=== PATIENT | male | born 1965 | race Caucasian/White ===

== ENCOUNTER 2016-09-25 10:26 | Emergency (ER) | payer OTHER ==
--- NOTE | 2016-09-25 13:24 | ED CLINICAL REPORT ---
Clinical Report - Physicians/Mid Levels [facility] [address] [place] [place] [address] 09/25/2016 10:27 Patient: JOSE D WONG Time Seen: 10:51; initial patient contact. Arrived- By private vehicle. Historian- patient. HISTORY OF PRESENT ILLNESS Chief Complaint: FLANK PAIN. This started about 2 days ago and is still present. It was gradual in onset. At its maximum, severity described as mild. When seen in the E.D., severity described as mild. Modifying factors- worsened by movement. Not relieved by anything. No radiation. It is described as located in the left abdomen and the left flank. No nausea, loss of appetite, vomiting or diarrhea. No additional abdominal pain. Similar symptoms previously: None. Recent medical care: Not recently seen/assessed. REVIEW OF SYSTEMS No constipation, difficulty with urination, pain with urination, urinary frequency or fever. No chills. All systems otherwise negative, except as recorded above. PAST HISTORY Neck Pain. Pneumonia. Bronchitis. Sinusitis. Lumbar Strain. Back Injury. Back Pain. ADDITIONAL SURGERIES: Appendectomy. Inguinal Hernia Repair. SOCIAL HISTORY Never smoker. Occasional alcohol use. No drug use. ADDITIONAL NOTES The nursing notes have been reviewed with agreement regarding the chief complaint, PMH and patient medications and allergies. PHYSICAL EXAM Vital Signs: 09/25/2016 10:45 BP: 133/77. HR: 70. RR: 14. O2 saturation: 100%. Temp: 97.9 F. Pain level now: 6/10. Have been reviewed as normal. Appearance: Alert. Oriented X3. No acute distress. Eyes: Eyes normal inspection. ENT: Pharynx normal. CVS: Normal heart rate and rhythm. Heart sounds normal. Respiratory: No respiratory distress. Breath sounds normal. Abdomen: Soft and nontender. Bowel sounds normal. No organomegaly. No mass. Back: Moderate tenderness in the left mid lumbar area. Muscle spasm in the left mid lumbar spine region. Moderately limited ROM in the back- in the lumbar spine: decreased flexion, extension and rotation to the right. No CVA tenderness or vertebral point tenderness. Extremities: Extremities exhibit normal ROM. No lower extremity edema. Neuro: Oriented X 3. No motor deficit. LABS, X-RAYS, AND EKG Laboratory Tests: UA-Culture if indicated: (MAEGAN: 09/25/2016 10:45) ( MsgRcvd 09/25/2016 11:13) Final results Test Result Flag Units (Reference) URINE COLOR YELLOW URINE APPEARANCE CLEAR URINE GLUCOSE NEGATIVE (NEGATIVE) URINE BILIRUBIN NEGATIVE (NEGATIVE) URINE KETONE NEGATIVE (NEGATIVE) URINE SPECIFIC GRAVITY 1.010 (1.010-1.030) URINE PH 6.5 (5.0-8.0) URINE PROTEIN NEGATIVE (NEGATIVE) URINE UROBILINOGEN 0.2 EU/dL (0.2-1.0) URINE NITRITE NEGATIVE (NEGATIVE) URINE BLOOD NEGATIVE (NEGATIVE) URINE LEUK ESTERASE NEGATIVE (NEGATIVE) URINE RBC NONE SEEN rbc/hpf (0-1) URINE WBC 0-1 wbc/hpf (0-1) URINE EPITHELIAL CELLS NONE SEEN EPI/hpf (0-5) URINE BACTERIA NONE SEEN (NONE SEEN) URINE COMMENT CULT NOT INDICATED URINE CULTURES ARE SET-UP BASED ON THE FOLLOWING CRITERIA:POSITIVE NITRITEPOSITIVE LEUKOCYTE ESTERASEGREATER THAN 10 WHITE BLOOD CELLSMODERATE (2+) OR GREATER BACTERIA CBC w Diff: (MAEGAN: 09/25/2016 10:45) ( MsgRcvd 09/25/2016 11:13) Final results Test Result Flag Units (Reference) WHITE BLOOD COUNT 8.1 K/uL (4.5-11.5) RED BLOOD COUNT 4.89 M/uL (4.50-5.90) HEMOGLOBIN 14.8 gm/dL (13.5-17.5) HEMATOCRIT 44.2 % (41.0-53.0) MEAN CELL VOLUME 91 fL (80-100) MEAN CORPUSCULAR HGB 30 pg (26-34) MEAN CORPUSCULAR HGB CONC 34 g/dL (31-37) RED CELL DISTRIBUTION WIDTH 12.3 % (11.6-14.8) PLATELET COUNT 282 K/uL (150-400) NEUTROPHIL % 65.1 % (50-75) LYMPH % 26.6 % (25-40) MONO % 6.1 % (3-14) EOSINOPHIL % 2.0 % (0-4) BASOPHIL % 0.2 % (0-2) CMP: (MAEGAN: 09/25/2016 10:45) ( MsgRcvd 09/25/2016 11:31) Final results Test Result Flag Units (Reference) GLUCOSE 103 mg/dL (70-110) BUN 17 mg/dL (7-18) CREATININE 1.2 mg/dL (0.6-1.3) Estimated GFR >60 mL/min Estimated GFR- >60 mL/min Note: Persistent reduction over 3 months in eGFR<60 mL/min/1.73 m2 defines CKD. Patients with eGFR values>=60 mL/min/1.73 m2 may also have CKD if evidence ofpersistent proteinuria. Additional information may be foundat www.kidney.org. SODIUM 140 mmol/L (136-145) POTASSIUM 4.1 mmol/L (3.5-5.1) CHLORIDE 104 mmol/L (98-107) CARBON DIOXIDE 28 mmol/L (21-32) CALCIUM 8.7 mg/dL (8.5-10.1) TOTAL PROTEIN 7.3 g/dL (6.4-8.2) ALBUMIN 3.5 g/dL (3.3-5.0) BILIRUBIN, TOTAL 0.3 mg/dL (0.0-1.0) ALKALINE PHOSPHATASE 79 U/L (46-116) AST (SGOT) 20 U/L (15-37) ALT (SGPT) 40 U/L (12-78) LIPASE 206 U/L (73-393) AMYLASE 96 U/L (25-115) . PROGRESS AND PROCEDURES Disposition: Discharged home in good and improved condition. Condition: good. CLINICAL IMPRESSION 09/25/2016 10:45 BP: 133/77. HR: 70. RR: 14. O2 saturation: 100%. Temp: 97.9 F. Pain level now: 10. Vital Signs: have been reviewed as normal. Acute lumbar strain. INSTRUCTIONS No lifting greater than 10 lbs until well. Prescription Medications: Baclofen 20 mg: take 1 orally every 8 hours. Dispense thirty (30). No refills. Diclofenac 50 mg tablets: take 1 tablet orally every 8 hours as needed for pain or stiffness. Dispense thirty (30). No refill. Follow-up: Follow up with your doctor in about three days. Call for an appointment. Screening today revealed the patient's blood pressure to be in the pre-hypertensive range. The patient should follow up with a primary care provider for blood pressure management. (Electronically signed by Dinesh Lui Dr. 09/25/2016 22:13)
--- NOTE | 2016-09-25 13:24 | ED ORDER SUMMARY ---
..... Patient: JOSE D WONG OrderSheet [facility] VisitID: [id number] [address] [place] [address] 51y, M Registration Date/Time: 09/25/2016 ORDER SHEET Weight: 99.7 kg (stated) Allergies: No Known Drug Allergy GENERAL ORDERS: UA-Culture if indicated Urgent (10:50 09/25/2016 JBoardley R.N. per protocol) (10:57 JBoardley R.N.) CBC w Diff Urgent (10:56 09/25/2016 JBoardley R.N. per protocol) (10:57 JBoardley R.N.) CMP Urgent (10:56 09/25/2016 JBoardley R.N. per protocol) (10:57 JBoardley R.N.) Amylase Urgent (10:56 09/25/2016 JBoardley R.N. per protocol) (10:57 JBoardley R.N.) Lipase Urgent (10:56 09/25/2016 JBoardley R.N. per protocol) (10:57 JBoardley R.N.) MEDICATION ORDERS: IV FLUIDS: IV Saline Lock (10:56 09/25/2016 JBoardley R.N. per protocol) (10:56 JBoardley R.N.) ORDER SHEET NOTES: [Electronically signed by Ernie Hensley R.N. (14:01 09/25/2016)] [Electronically signed by Dinesh Lui Dr. (22:13 09/25/2016)] [Electronically locked/signed by Ernie Hensley R.N. (14:09/25/2016)]
--- NOTE | 2016-09-25 13:24 | ED NURSING NOTES ---
Clinical Report - Nurses [facility] [address] [place] [address] 09/25/2016 10:27 Patient: JOSE D WONG TRIAGE Triage time 10:45. Acuity: LEVEL 4. Chief Complaint: FLANK PAIN. 10:47 09/25/16. 10:47 09/25/16. --10:50 Ernie Hensley R.N. 10:45 09/25/16. BP: 133/77. HR: 70. RR: 14. O2 saturation: 100% on room air. Temp: 97.9 F (oral). Pain level now: 03/03. --10:50 Ernie Hensley R.N. Weight: 99.7 kg stated. Height/Length: 66 inches Per Patient. BMI: 35.5. --10:47 Ernie Hensley R.N. Medications None. --10:48 Ernie Hensley R.N. Allergies No Known Drug Allergy. --10:48 Ernie Hensley R.N. History Arrived by private vehicle. Historian: patient. Accompanied by family. Primary physician (ESAU). 10:47 09/25/16. ( 3 days ago). 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 PAST MEDICAL HX: Immunizations not up to date. SOCIAL HX: Never smoker. Occasional alcohol use; consumes beer. No drug use. No recent travel. No infectious disease exposure. No known contact with a sick individual. ABUSE ASSESSMENT: No report of abuse. FALL RISK ASSESSMENT: Fall risk assessment completed. No fall risk identified. NUTRITIONAL RISK ASSESSMENT: The nutritional risk assessment revealed no deficiencies. FUNCTIONAL ASSESSMENT: Functional assessment: no impairments noted. LEARNING NEEDS ASSESSMENT: The learning needs assessment revealed no barriers. SKIN INTEGRITY ASSESSMENT: Skin integrity risk assessment completed. No skin integrity risk identified. --10:50 Ernie Hensley R.N. PROBLEMS: Neck Pain. Pneumonia. Bronchitis. Sinusitis. Lumbar Strain. Back Injury. Back Pain. --10:48 Ernie Hensley R.N. ADDITIONAL SURGERIES: Appendectomy. Inguinal Hernia Repair. --10:48 Ernie Hensley R.N. Assessment 10:47 09/25/16. --10:50 Ernie Hensley R.N. Interventions 10:47 09/25/16. 10:47 09/25/16. ID and allergy band on patient. --10:50 Ernie Hensley R.N. PHYSICAL ASSESSMENT 10:47 09/25/16. Ambulatory to room. GENERAL / NEURO / PSYCH: Alert. Oriented X 4. RESPIRATORY: Respirations not labored. CVS: Capillary refill less than 2 seconds. SKIN: Skin is warm and dry. --10:47 Ernie Hensley R.N. NURSING PROGRESS NOTES 10:47 09/25/16. The plan of care for this patient has been created. Patient gowned. Head of bed elevated. Reassurance given. Two patient identifiers checked. Call light placed in reach. Side rails up x 2. Bed placed in lowest position. Brakes of bed on. Brakes of chair on. --10:47 Ernie Hensley R.N. 10:56 09/25/2016 Site #1 started via IV in the right antecubital space with an 20g angiocath, with aseptic technique and good blood return; one attempt. Blood drawn: rainbow set. Labeled in the presence of the patient and sent to the lab. Saline lock flushed with 10 mL saline. --10:56 Ernie Hensley R.N. 11:50 09/25/16. Patient and family informed about reason for wait and about plan of care. --11:50 Ernie Hensley R.N. DISPOSITION / DISCHARGE 13:36 09/25/2016 Site #1 removed upon discharge. Catheter intact. Bandage applied. --13:36 Ernie Hensley R.N. 13:38 09/25/16. Condition at departure: improved. The goals identified in the patient's plan of care were met. No learning barriers present. Discharge instructions provided and reviewed with the patient. Reviewed warnings. Reviewed medication(s). Treatments reviewed. Patient verbalized understanding. Written instructions provided in Swedish. The patient was discharged by the physician. He was discharged home and accompanied by family. He left the Emergency Department ambulatory and via private vehicle. Family member driving. FALL RISK ASSESSMENT: Fall risk assessment completed. No fall risk identified. --13:38 Ernie Hensley R.N. 13:36 09/25/16. BP: 142/82. HR: 71. RR: 14. O2 saturation: 100% on room air. Temp: 98.2 F (oral). --13:38 Ernie Hensley R.N. 13:38 09/25/16. Departure time: 13:38. --13:38 Ernie Hensley R.N. Locked/Released at 09/25/2016 14:01 by Ernie Hensley R.N.
--- NOTE | 2016-09-25 13:24 | ED ORDER SUMMARY ---
..... Patient: JOSE D WONG OrderSheet [facility] VisitID: [id number] [address] [place] [address] 51y, M Registration Date/Time: 09/25/2016 ORDER SHEET Weight: 99.7 kg (stated) Allergies: No Known Drug Allergy GENERAL ORDERS: UA-Culture if indicated Urgent (10:50 09/25/2016 JBoardley R.N. per protocol) (10:57 JBoardley R.N.) CBC w Diff Urgent (10:56 09/25/2016 JBoardley R.N. per protocol) (10:57 JBoardley R.N.) CMP Urgent (10:56 09/25/2016 JBoardley R.N. per protocol) (10:57 JBoardley R.N.) Amylase Urgent (10:56 09/25/2016 JBoardley R.N. per protocol) (10:57 JBoardley R.N.) Lipase Urgent (10:56 09/25/2016 JBoardley R.N. per protocol) (10:57 JBoardley R.N.) MEDICATION ORDERS: IV FLUIDS: IV Saline Lock (10:56 09/25/2016 JBoardley R.N. per protocol) (10:56 JBoardley R.N.) ORDER SHEET NOTES: [Electronically signed by Ernie Hensley R.N. (14:01 09/25/2016)] [Electronically signed by Dinesh Lui Dr. (22:13 09/25/2016)] [Electronically locked/signed by Ernie Hensley R.N. (14:09/25/2016)]
--- NOTE | 2016-09-25 13:24 | ED NURSING NOTES ---
Clinical Report - Nurses [facility] [address] [place] [address] 09/25/2016 10:27 Patient: JOSE D WONG TRIAGE Triage time 10:45. Acuity: LEVEL 4. Chief Complaint: FLANK PAIN. 10:47 09/25/16. 10:47 09/25/16. --10:50 Ernie Hensley R.N. 10:45 09/25/16. BP: 133/77. HR: 70. RR: 14. O2 saturation: 100% on room air. Temp: 97.9 F (oral). Pain level now: 03/03. --10:50 Ernie Hensley R.N. Weight: 99.7 kg stated. Height/Length: 66 inches Per Patient. BMI: 35.5. --10:47 Ernie Hensley R.N. Medications None. --10:48 Ernie Hensley R.N. Allergies No Known Drug Allergy. --10:48 Ernie Hensley R.N. History Arrived by private vehicle. Historian: patient. Accompanied by family. Primary physician (ESAU). 10:47 09/25/16. ( 3 days ago). 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 PAST MEDICAL HX: Immunizations not up to date. SOCIAL HX: Never smoker. Occasional alcohol use; consumes beer. No drug use. No recent travel. No infectious disease exposure. No known contact with a sick individual. ABUSE ASSESSMENT: No report of abuse. FALL RISK ASSESSMENT: Fall risk assessment completed. No fall risk identified. NUTRITIONAL RISK ASSESSMENT: The nutritional risk assessment revealed no deficiencies. FUNCTIONAL ASSESSMENT: Functional assessment: no impairments noted. LEARNING NEEDS ASSESSMENT: The learning needs assessment revealed no barriers. SKIN INTEGRITY ASSESSMENT: Skin integrity risk assessment completed. No skin integrity risk identified. --10:50 Ernie Hensley R.N. PROBLEMS: Neck Pain. Pneumonia. Bronchitis. Sinusitis. Lumbar Strain. Back Injury. Back Pain. --10:48 Ernie Hensley R.N. ADDITIONAL SURGERIES: Appendectomy. Inguinal Hernia Repair. --10:48 Ernie Hensley R.N. Assessment 10:47 09/25/16. --10:50 Ernie Hensley R.N. Interventions 10:47 09/25/16. 10:47 09/25/16. ID and allergy band on patient. --10:50 Ernie Hensley R.N. PHYSICAL ASSESSMENT 10:47 09/25/16. Ambulatory to room. GENERAL / NEURO / PSYCH: Alert. Oriented X 4. RESPIRATORY: Respirations not labored. CVS: Capillary refill less than 2 seconds. SKIN: Skin is warm and dry. --10:47 Ernie Hensley R.N. NURSING PROGRESS NOTES 10:47 09/25/16. The plan of care for this patient has been created. Patient gowned. Head of bed elevated. Reassurance given. Two patient identifiers checked. Call light placed in reach. Side rails up x 2. Bed placed in lowest position. Brakes of bed on. Brakes of chair on. --10:47 Ernie Hensley R.N. 10:56 09/25/2016 Site #1 started via IV in the right antecubital space with an 20g angiocath, with aseptic technique and good blood return; one attempt. Blood drawn: rainbow set. Labeled in the presence of the patient and sent to the lab. Saline lock flushed with 10 mL saline. --10:56 Ernie Hensley R.N. 11:50 09/25/16. Patient and family informed about reason for wait and about plan of care. --11:50 Ernie Hensley R.N. DISPOSITION / DISCHARGE 13:36 09/25/2016 Site #1 removed upon discharge. Catheter intact. Bandage applied. --13:36 Ernie Hensley R.N. 13:38 09/25/16. Condition at departure: improved. The goals identified in the patient's plan of care were met. No learning barriers present. Discharge instructions provided and reviewed with the patient. Reviewed warnings. Reviewed medication(s). Treatments reviewed. Patient verbalized understanding. Written instructions provided in Portuguese. The patient was discharged by the physician. He was discharged home and accompanied by family. He left the Emergency Department ambulatory and via private vehicle. Family member driving. FALL RISK ASSESSMENT: Fall risk assessment completed. No fall risk identified. --13:38 Ernie Hensley R.N. 13:36 09/25/16. BP: 142/82. HR: 71. RR: 14. O2 saturation: 100% on room air. Temp: 98.2 F (oral). --13:38 rEnie Hensley R.N. 13:38 09/25/16. Departure time: 13:38. --13:38 Ernie Hensley R.N. Locked/Released at 09/25/2016 14:01 by Ernie Hensley R.N.
--- NOTE | 2016-09-25 22:13 | ED MAR SUMMARY ---
..... Medication Administration Record Located Within [facility] [address] [place], [place] [id number] Patient: JOSE D WONG Visit ID: [id number] 51y, M Weight: 99.7 kg Height/Length: 66 in BMI: 35.5 ALLERGIES: No Known Drug Allergy
--- NOTE | 2016-09-25 22:13 | ED MED RECONCILIATION SUMMARY ---
Patient: JOSE D WONG Medication Reconciliation Report [facility] VisitID: [id number] [address] [place] [address] 51y, M Registration Date/Time: 09/25/2016 Weight: 99.7 kg Height/Length: 66 in. BMI: 35.5 ALLERGIES: No Known Drug Allergy The patient's Home Medications are listed below: NONE. The source(s) of the original Home Medication information: Not obtained. The following Medications were given to the patient in the Emergency Department: None. The following Medications were prescribed to the patient: Baclofen 20 mg: take 1 orally every 8 hours. Dispense thirty (30). No refills. -- Dinesh Lui Dr. Diclofenac 50 mg tablets: take 1 tablet orally every 8 hours as needed for pain or stiffness. Dispense thirty (30). No refill. -- Dinesh Lui Dr.
--- NOTE | 2016-09-25 22:13 | ED DISCHARGE INSTRUCTIONS ---
Patient: JOSE D WONG General Instructions [facility] VisitID: [id number] [address] [place] [address] 51y, M Registration Date/Time: 09/25/2016 09/25/2016 10:45 BP: 133/77. HR: 70. RR: 14. O2 saturation: 100%. Temp: 97.9 F. Pain level now: 03/03. Vital Signs: have been reviewed as normal. Acute lumbar strain. INSTRUCTIONS No lifting greater than 10 lbs until well. Prescription Medications: Baclofen 20 mg: take 1 orally every 8 hours. Dispense thirty (30). No refills. Diclofenac 50 mg tablets: take 1 tablet orally every 8 hours as needed for pain or stiffness. Dispense thirty (30). No refill. Follow-up: Follow up with your doctor in about three days. Call for an appointment. Screening today revealed the patient's blood pressure to be in the pre-hypertensive range. The patient should follow up with a primary care provider for blood pressure management. ADDITIONAL INFORMATION Back Pain [Acute Or Chronic] Back pain is usually caused by an injury to the muscles or ligaments of the spine. Sometimes the disks that separate each bone in the spine may bulge and cause pain by pressing on a nearby nerve. Back pain may also appear after a sudden twisting/bending force (such as in a car accident), after a simple awkward movement, or lifting something heavy with poor body positioning. In either case, muscle spasm is often present and adds to the pain. Acute back pain usually gets better in one to two weeks. Back pain related to disk disease, arthritis in the spinal joints or spinal stenosis (narrowing of the spinal canal) can become chronic and last for months or years. Unless you had a physical injury (for example, a car accident or fall) X-rays are usually not ordered for the initial evaluation of back pain. If pain continues and does not respond to medical treatment, x-rays and other tests may be performed at a later time. Home Care: You may need to stay in bed the first few days. But, as soon as possible, begin sitting or walking to avoid problems with prolonged bed rest (muscle weakness, worsening back stiffness and pain, blood clots in the legs). When in bed, try to find a position of comfort. A firm mattress is best. Try lying flat on your back with pillows under your knees. You can also try lying on your side with your knees bent up towards your chest and a pillow between your knees. Avoid prolonged sitting. This puts more stress on the lower back than standing or walking. During the first two days after injury, apply an ICE PACK to the painful area for 20 minutes every 2-4 hours. This will reduce swelling and pain. HEAT (hot shower, hot bath or heating pad) works well for muscle spasm. You can start with ice, then switch to heat after two days. Some patients feel best alternating ice and heat treatments. Use the one method that feels the best to you. You may use acetaminophen (Tylenol) or ibuprofen (Motrin, Advil) to control pain, unless another pain medicine was prescribed. [NOTE: If you have chronic liver or kidney disease or ever had a stomach ulcer or GI bleeding, talk with your doctor before using these medicines.] Be aware of safe lifting methods and do not lift anything over 15 pounds until all the pain is gone. Follow Up with your doctor or this facility if your symptoms do not start to improve after one week. Physical therapy may be needed. [NOTE: If X-rays were taken, they will be reviewed by a radiologist. You will be notified of any new findings that may affect your care.] Get Prompt Medical Attention if any of the following occur: Pain becomes worse or spreads to your legs Weakness or numbness in one or both legs Loss of bowel or bladder control Numbness in the groin or genital area You have been given the following additional information: Back Pain (Acute Or Chronic) No lifting greater than 10 lbs until well. (Electronically signed by Dinesh Lui Dr. 09/25/2016 22:13)
--- NOTE | 2016-09-25 22:13 | ED MAR SUMMARY ---
..... Medication Administration Record [facility] [address], [place] [id number] Patient: JOSE D WONG Visit ID: [id number] 51y, M Weight: 99.7 kg Height/Length: 66 in BMI: 35.5 ALLERGIES: No Known Drug Allergy
--- NOTE | 2016-09-25 22:13 | ED MED RECONCILIATION SUMMARY ---
Patient: JOSE D WONG Medication Reconciliation Report [facility] VisitID: [id number] [address] [place] [address] 51y, M Registration Date/Time: 09/25/2016 Weight: 99.7 kg Height/Length: 66 in. BMI: 35.5 ALLERGIES: No Known Drug Allergy The patient's Home Medications are listed below: NONE. The source(s) of the original Home Medication information: Not obtained. The following Medications were given to the patient in the Emergency Department: None. The following Medications were prescribed to the patient: Baclofen 20 mg: take 1 orally every 8 hours. Dispense thirty (30). No refills. -- Dinesh Lui Dr. Diclofenac 50 mg tablets: take 1 tablet orally every 8 hours as needed for pain or stiffness. Dispense thirty (30). No refill. -- Dinesh Lui Dr.
== END 2016-09-25 13:36 | disposition home or self-care (01) ==
LOC: ED SRH 10:26
DX: S39.012A Strain of muscle, fascia and tendon of lower back, initial encounter (principal); X58.XXXA Exposure to other specified factors, initial encounter; Y93.9 Activity, unspecified; Y92.9 Unspecified place or not applicable; Y99.8 Other external cause status
CPT/HCPCS: 90004; 90100; 92235; 92530; 95059

== ENCOUNTER 2016-12-19 15:34 | Outpatient (CLI) | payer OTHER ==
--- NOTE | 2016-12-20 11:28 | DIAGNOSTIC IMAGING REPORT ---
PROCEDURE: US VENOUS - LEFT EXT INDICATION: PAIN/SWELLING LEFT FOREARM TECHNIQUE: Color Doppler duplex imaging of the deep and superficial venous system of the left upper extremity without and with compression. COMPARISON: None. FINDINGS: Deep and superficial venous system of the left upper extremity is within normal limits. Left internal jugular, subclavian, axillary, and brachial veins are normal. Left form vessels are normal There is no evidence of deep vein thrombosis or superficial thrombophlebitis. IMPRESSION: 1. Negative venous ultrasound of the left upper extremity. No evidence of deep vein thrombosis or superficial thrombophlebitis.
== END 2016-12-19 23:00 ==
LOC: US SRH 15:34
DX: M79.632 Pain in left forearm (principal); M79.89 Other specified soft tissue disorders